=== PATIENT | female | born 1960 | race Caucasian/White ===

== ENCOUNTER 2018-12-22 14:49 | Outpatient (CLI) | payer OTHER, MEDICAID | END 2018-12-22 20:29 | disposition home or self-care (01) | LOC: SMA 14:49 → EDSEX 14:49 → SMA 20:29 | PROVIDERS: ATTEND Family Medicine | DX: Z12.31 Encounter for screening mammogram for malignant neoplasm of breast (principal) | CPT/HCPCS: 77067 ==

== ENCOUNTER 2019-02-04 14:10 | Outpatient (CLI) | payer OTHER, MEDICAID | END 2019-02-04 21:30 | disposition home or self-care (01) | LOC: SUS 14:10 | PROVIDERS: ATTEND Family Medicine | DX: R22.30 Localized swelling, mass and lump, unspecified upper limb (principal) | CPT/HCPCS: 76642 ==

== ENCOUNTER 2021-04-10 10:33 | Outpatient (CLI) | payer OTHER, MEDICAID | END 2021-04-10 14:01 | disposition home or self-care (01) | LOC: SMA 10:33 | PROVIDERS: ATTEND Family Medicine | DX: Z12.31 Encounter for screening mammogram for malignant neoplasm of breast (principal) | CPT/HCPCS: 77067 ==